=== PATIENT | female | born 1960 | race Caucasian/White ===

== ENCOUNTER 2019-01-11 13:32 | Emergency (ER) | payer OTHER ==
[~2019-01-11] VITALS: Ht 170.2 cm; Wt 80.7 kg
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
[2019-01-11] MEDS ORDERED: LISINOPRIL20 MG PO (13:53)
[2019-01-11] MEDS ORDERED: LEVOTHYROXINE75 MCG PO (13:53)
[2019-01-11] MEDS ORDERED: METOPROLOL SUCC25 MG PO (13:53)
[2019-01-11] MEDS ORDERED: OMEGA-31000 MG (13:54)
[2019-01-11] MEDS ORDERED: OMEGA-31000 MG PO (13:54)
[2019-01-11] MEDS ORDERED: NORCO 5-325 TA1 EACH PO (14:18)
[2019-01-11] MEDS ORDERED: CYCLOBENZAPRINE10 MG PO (14:18)
== END 2019-01-11 14:29 | disposition home or self-care (01) ==
LOC: ED 13:32
DX: M94.0 Chondrocostal junction syndrome [Tietze] (principal); Z88.0 Allergy status to penicillin; Z88.5 Allergy status to narcotic agent
CPT/HCPCS: 71120; 99283-25